=== PATIENT | female | born 1975 | race Caucasian/White ===

== ENCOUNTER 2017-02-13 04:56 | Inpatient (IN) | payer OTHER ==
[2017-02-13] MEDS ORDERED: LR 1,000 ML ONE ×3 (07:57→15:13)
[2017-02-13] MEDS ORDERED: MEFOXIN 2 GM/NS 50 ML ONE (07:58)
[2017-02-13] MEDS ORDERED: VALIUM ONE (07:58)
[2017-02-13] MEDS ORDERED: TRANSDERM-SCOP ONE (07:59)
[2017-02-13] MEDS ORDERED: MARCAINE 0.25% PF/EPI 1:200,000 ONE (11:34)
[2017-02-13] MEDS ORDERED: FENTANYL ONE ×2 (15:00→15:15)
[2017-02-13] MEDS ORDERED: DIPRIVAN 1% ONE (15:00)
[2017-02-13] MEDS ORDERED: VERSED ONE (15:00)
[2017-02-13] MEDS: DILAUDID ONE ×2 (15:18→15:25)
[2017-02-13] MEDS ORDERED: NORCO-10 PO PRN (15:44)
[2017-02-13] MEDS ORDERED: PHENERGAN ONE (15:44)
--- NOTE | 2017-02-13 16:10 | OPERATIVE NOTE ---
PROCEDURE DATE: 02/13/2017 PREOPERATIVE DIAGNOSES: 1. Luevano esophagus, without dysplasia. 2. Hiatal hernia. 3. Severe gastroesophageal reflux disease. POSTOPERATIVE DIAGNOSES: 1. Luevano esophagus, without dysplasia. 2. Hiatal hernia. 3. Severe gastroesophageal reflux disease. PROCEDURES PERFORMED: 1. Laparoscopic repair of hiatal hernia. 2. Laparoscopic Jemal fundoplication. SURGEON: Usman Sevilla MD MOBILE DEVELOPER: None. ANESTHESIA: General endotracheal. INTRAOPERATIVE FINDINGS: Significant scar tissue noted at the hiatus, hiatal hernia noted. We were able to do a floppy wrap that was able to accommodate a 54-[place] bougie easily. COMPLICATIONS: None at the time of dictation. ESTIMATED BLOOD LOSS: 10 mL. SPECIMENS REMOVED: None. HISTORY: The patient is a 41-year-old female with severe gastroesophageal reflux disease. She had a biopsy that showed Luevano's esophagitis but there was no dysplasia. Given this and her age, we elected to perform a Jemal fundoplication. The risks, benefits, and alternatives were discussed. All questions were answered. DESCRIPTION OF PROCEDURE: After informed consent was obtained, the patient was brought to the operating theatre, transferred to the operating table, and placed in supine position. General endotracheal anesthesia was then performed without complication. A formal time-out was then performed, confirming patient, date, and procedure, and all were in agreement. At that time, we turned our attention to the abdomen. We placed multiple trocars. The 1st one was a 10 mm that we placed just above the umbilicus. We placed another 10 mm in the same position but in the midclavicular line. We placed three 5 mm, 1 in the right upper quadrant, 1 in the subxiphoid, and 1 in the left upper quadrant. Using these, the stomach was identified. We 1st took down the lesser omentum and then took down the greater omentum with electrocautery. With the LigaSure, we were able to dissect out the short gastrics easily. We then dissected all the way to the right and left crura. We were able to identify both the right and left crura. There was significant scar tissue noted around this. We were able to reduce the hiatal hernia into the abdomen. Once we had done this, we made a window under the esophagus with the bougie in place. We were able to protect the esophagus. We then placed 2 crural stitches to close the hiatal hernia. We placed these laparoscopically. There was good crural approximation. We were then able to bring the fundus and wrap it posterior to the stomach. We performed the shoe shine technique that confirmed it was not twisted. We performed Jemal fundoplication and made the fundoplication very floppy. We were able to pass a 54-[place] bougie easily through the fundoplication without issue. We examined all surfaces. There was no active bleeding. We then closed the supraumbilical 10 mm trocar with the Enrique-Emelyn device. No other incisions needed to have the fascia closed. We removed all trocars, disconnected insufflation, and the pneumoperitoneum was released. We then closed all skin incisions with 4-0 Monocryl. The patient tolerated procedure well and was transferred to the recovery room in stable condition. Postoperatively, we will monitor her overnight and start her on clear liquids at 8 o'clock tonight.
[2017-02-13] MEDS ORDERED: NEOSTIGMINE ONE (16:33)
[2017-02-13] MEDS ORDERED: ZOFRAN ONE (16:33)
[2017-02-13] MEDS ORDERED: XYLOCAINE-MPF 2% ONE (16:34)
[2017-02-13] MEDS ORDERED: DECADRON ONE (16:34)
[2017-02-13] MEDS ORDERED: QUELICIN (DOSE) ONE (16:34)
[2017-02-13] MEDS ORDERED: ROBINUL ONE (16:34)
[2017-02-13] MEDS ORDERED: NORCURON ONE (16:34)
[2017-02-13] MEDS ORDERED: LR 2,000 ML ONE (16:34)
[2017-02-13] MEDS: LR 1,000 ML IV SCH (17:21)
[2017-02-13] MEDS: MORPHINE IV PRN ×2 (18:52→20:56)
[2017-02-13] MEDS: PERIDEX MT SCH (20:56)
[2017-02-13] MEDS: HEPARIN SUBQ SCH (20:57)
[2017-02-13] MEDS: LITHIUM CARBONATE PO SCH (22:46)
[2017-02-13] MEDS: SAPHRIS SL SCH (22:46)
[2017-02-14] MEDS: PRILOSEC PO SCH (06:45)
[2017-02-14] MEDS: HEPARIN SUBQ SCH ×3 (06:45→20:42)
[2017-02-14] MEDS: MORPHINE IV PRN ×8 (06:45→23:49)
[2017-02-14] MEDS: LR 1,000 ML IV SCH (06:46)
[2017-02-14] MEDS: FERROUS SULFATE PO SCH (09:01)
[2017-02-14] MEDS: PERIDEX MT SCH ×2 (09:02→20:41)
[2017-02-14] MEDS: VITAMIN D PO SCH (09:02)
[2017-02-14] MEDS ORDERED: LR 1,000 ML IV SCH (11:55)
[2017-02-14] MEDS: LITHIUM CARBONATE PO SCH (20:43)
[2017-02-14] MEDS: SAPHRIS SL SCH (20:43)
[2017-02-14] MEDS ORDERED: DESYREL PO SCH (21:00)
[2017-02-14] MEDS ORDERED: COZAAR PO SCH (21:00)
[2017-02-14] MEDS: ZOFRAN IV PRN (23:53)
[2017-02-15] MEDS: ZOFRAN IV PRN ×2 (03:22→10:24)
--- NOTE | 2017-02-15 05:53 | EKG Report ---
Test Performed on : 02/13/2017 11:19:51 PM Test Reason : chest pain Blood Pressure : / mmHG Vent. Rate : 070 BPM Atrial Rate : 070 BPM P-R Int : 148 ms QRS Dur : 088 ms QT Int : 394 ms P-R-T Axes : 066 029 039 degrees QTc Int : 425 ms Sinus rhythm. with marked sinus arrhythmia. Otherwise normal ECG No previous ECGs available Confirmed by Pierre JUAN, Luis Enrique Pollock ([id number]) on 02/17/2017 1:35:09 PM
[2017-02-15] MEDS: MORPHINE IV PRN ×3 (06:01→10:19)
[2017-02-15] MEDS: PRILOSEC PO SCH (06:01)
[2017-02-15] MEDS: HEPARIN SUBQ SCH (06:01)
[2017-02-15] MEDS: FERROUS SULFATE PO SCH (08:24)
[2017-02-15] MEDS: VITAMIN D PO SCH (08:25)
[2017-02-15] MEDS: PERIDEX MT SCH (08:25)
[2017-02-15 08:50] VITALS: BP 122/69
--- NOTE | 2017-02-15 09:56 | Diag Imaging Result Document ---
PROCEDURE NAME: CHEST-PORTABLE - 02/15/2017 SINGLE FRONTAL RADIOGRAPH OF THE CHEST: COMPARISON: None available. FINDINGS: Inspiration is suboptimal. The lungs appear to be grossly clear. No large pleural fluid collection can be identified. Cardiac silhouette and central vasculature are grossly unremarkable. IMPRESSION: Low lung volumes but no definite acute pathology.
== END 2017-02-15 12:06 | disposition home or self-care (01) | DRG 327 ==
LOC: SURHOLD 04:56 → 4N 13:34
PROVIDERS: ADMIT Surgery; ATTEND Surgery
PROC: 0BQR4ZZ (ICD-10-PCS; 2017-02-13)
PROC: 0BQS4ZZ (ICD-10-PCS; 2017-02-13)
PROC: 0DV44ZZ Restriction of Esophagogastric Junction, Percutaneous Endoscopic Approach (ICD-10-PCS; principal; 2017-02-13 12:00)
DX: K44.9 Diaphragmatic hernia without obstruction or gangrene (principal); Z68.41 Body mass index [BMI] 40.0-44.9, adult; K22.70 Barrett's esophagus without dysplasia; I10 Essential (primary) hypertension; K21.9 Gastro-esophageal reflux disease without esophagitis; Z82.49 Family history of ischemic heart disease and other diseases of the circulatory system; E66.01 Morbid (severe) obesity due to excess calories; F17.290 Nicotine dependence, other tobacco product, uncomplicated; Z87.11 Personal history of peptic ulcer disease; D64.9 Anemia, unspecified; F31.9 Bipolar disorder, unspecified; Z79.899 Other long term (current) drug therapy
CPT/HCPCS: 71010; 93005; 93010; 94761; 94799; J0330; J0694; J1100; J1170; J1644; J2250; J2270; J2405; J2550; J3010; J7120; J2710